=== PATIENT | male | born 1950 | race Caucasian/White ===

== ENCOUNTER 2017-12-20 19:16 | Inpatient (IN) ==
--- NOTE | 2017-12-20 19:22 | Emergency Department Note ---
Disposition Clinical Impression: Sepsis, Pneumonia, Febrile, Tachycardia Disposition: Admitted As Inpatient Condition: Fair General Adult HPI - General Stated complaint: fever and weakness Time Seen by Provider: 12/20/17 19:19 - Related Data Home Medications Medication Instructions Recorded Confirmed Aspirin Enteric Coated [Aspirin EC] 81 mg PO DAILY 12/20/17 12/20/17 Atenolol [Tenormin] 25 mg PO DAILY 12/20/17 12/20/17 Linagliptin [Tradjenta] 5 mg PO DAILY 12/20/17 12/20/17 Lisinopril [Zestril] 10 mg PO DAILY 12/20/17 12/20/17 Metformin HCl [Glucophage] 1,000 mg PO BIDWM 12/20/17 12/20/17 Pioglitazone HCl [Actos] 30 mg PO DAILY 12/20/17 12/20/17 Pravastatin Sodium [Pravachol] 40 mg PO BID 12/20/17 12/20/17 glipiZIDE [Glucotrol] 5 mg PO 0800 12/20/17 12/20/17 hydroCHLOROthiazide 25 mg PO DAILY 12/20/17 12/20/17 [Hydrochlorothiazide] Allergies Allergy/AdvReac Type Severity Reaction Status Date / Time Penicillins Allergy Hives Verified 08/30/17 14:13 Past Medical History - Past Medical History Medical history: Reports: diabetes, GERD, hyperlipidemia, hypertension Psychiatric history: Reports: anxiety - Social History Smoking Status: Never smoker Smokeless Tobacco Status: No Alcohol use: Reports: none Drug use: Reports: none Course Vital Signs Temperature 102.9 F H 12/20/17 19:23 Pulse Rate 133 12/20/17 19:23 Respiratory Rate 16 12/20/17 19:23 Blood Pressure 130/84 12/20/17 19:23 O2 Sat by Pulse Oximetry 92 12/20/17 19:23 Temperature 97.7 F 12/20/17 22:24 Pulse Rate 97 12/20/17 22:24 Respiratory Rate 22 12/20/17 22:24 Blood Pressure 131/84 12/20/17 22:24 O2 Sat by Pulse Oximetry 94 12/20/17 22:24 Oxygen Delivery Oxygen Delivery Nasal Cannula Medical Decision Making - Lab Data Result diagrams: 12/20/17 19:45 12/20/17 19:45 Lab Results 12/20/17 12/20/17 12/20/17 Range/Units 19:45 19:45 19:45 WBC 12.7 H (4.3-11.1) K/mcL RBC 5.39 (4.19-5.50) M/mcL Hgb 14.8 (12.9-16.9) g/dL Hct 43.1 (37.5-50.1) % MCV 80.0 L (83.0-100.0) fL MCH 27.5 L (28.0-33.3) pg MCHC 34.3 (31.6-35.5) g/dL RDW 14.8 H (11.5-14.5) % Plt Count 194 (140-400) K/mcL MPV 12.0 (9.4-12.4) fL Immature Gran % 1.1 (0-4) % Seg Neutrophils % 84.8 % Lymphocytes % 4.2 % Monocytes % 9.7 % Eosinophils % 0.0 % Basophils % 0.2 % Neutrophils # 10.8 H (1.6-8.9) K/mcL Lymphocytes # 0.5 L (0.6-4.6) K/mcL Monocytes # 1.2 (0.0-1.3) K/mcL Eosinophils # 0.0 (0.0-0.6) K/mcL Basophils # 0.0 (0.0-0.2) K/mcL PT 15.9 H (9.4-12.1) Seconds INR 1.5 Sodium 132 L (136-145) mEq/L Potassium 3.9 (3.5-5.1) mEq/L Chloride 98 (98-107) mEq/L Carbon Dioxide 22 L (23-29) mEq/L BUN 29 H (8-23) mg/dL Creatinine 1.27 (0.70-1.30) mg/dL Est GFR ( Amer) > 60 (> 60) Est GFR (Non-Af Amer) 56 L (> 60) BUN/Creatinine Ratio 23 (6-26) Glucose 342 H (70-105) mg/dL Calculated Osmolality 293 (280-300) Lactic Acid (0.5-2.2) mmol/L Calcium 8.7 (8.6-10.3) mg/dL Magnesium 2.2 (1.6-2.6) mg/dL Total Bilirubin 0.8 (0.3-1.0) mg/dL Direct Bilirubin 0.3 H (0.0-0.2) mg/dL Indirect Bilirubin 0.5 (0.0-1.2) mg/dL AST 88 H (13-39) Units/L ALT 69 H (7-52) Units/L Alkaline Phosphatase 66 (34-104) Units/L Troponin I 0.09 H* (< 0.04) ng/mL Serum Total Protein 6.9 (6.4-8.9) g/dL Albumin 3.4 L (3.5-5.7) g/dL Globulin 3.5 (2.4-3.5) g/dL Albumin/Globulin Ratio 1.0 L (1.1-2.2) Urine Color (Yellow) Urine Clarity (Clear) Urine pH (5.0-8.0) pH Units Ur Specific [place] (1.010-1.025) Urine Protein (Neg-Trace) mg/dL Urine Glucose (UA) (Normal) mg/dL Urine Ketones (Negative) mg/dL Urine Blood (Negative) Urine Nitrite (Negative) Urine Bilirubin (Negative) Urine Urobilinogen (Normal) mg/dL Ur Leukocyte Esterase (Negative) Urine Microscopic RBC (0-3) per hpf Urine Microscopic WBC (0-3) per hpf Ur Squamous Epith Cells (None-Few) per lpf Amorphous Sediment (Few) Urine Bacteria (None-Few) per hpf Hyaline Casts (None-Few) per lpf Ur Culture Indicated? (NO) 12/20/17 12/20/17 Range/Units 19:45 19:47 WBC (4.3-11.1) K/mcL RBC (4.19-5.50) M/mcL Hgb (12.9-16.9) g/dL Hct (37.5-50.1) % MCV (83.0-100.0) fL MCH (28.0-33.3) pg MCHC (31.6-35.5) g/dL RDW (11.5-14.5) % Plt Count (140-400) K/mcL MPV (9.4-12.4) fL Immature Gran % (0-4) % Seg Neutrophils % % Lymphocytes % % Monocytes % % Eosinophils % % Basophils % % Neutrophils # (1.6-8.9) K/mcL Lymphocytes # (0.6-4.6) K/mcL Monocytes # (0.0-1.3) K/mcL Eosinophils # (0.0-0.6) K/mcL Basophils # (0.0-0.2) K/mcL PT (9.4-12.1) Seconds INR Sodium (136-145) mEq/L Potassium (3.5-5.1) mEq/L Chloride (98-107) mEq/L Carbon Dioxide (23-29) mEq/L BUN (8-23) mg/dL Creatinine (0.70-1.30) mg/dL Est GFR ( Amer) (> 60) Est GFR (Non-Af Amer) (> 60) BUN/Creatinine Ratio (6-26) Glucose (70-105) mg/dL Calculated Osmolality (280-300) Lactic Acid 1.8 (0.5-2.2) mmol/L Calcium (8.6-10.3) mg/dL Magnesium (1.6-2.6) mg/dL Total Bilirubin (0.3-1.0) mg/dL Direct Bilirubin (0.0-0.2) mg/dL Indirect Bilirubin (0.0-1.2) mg/dL AST (13-39) Units/L ALT (7-52) Units/L Alkaline Phosphatase (34-104) Units/L Troponin I (< 0.04) ng/mL Serum Total Protein (6.4-8.9) g/dL Albumin (3.5-5.7) g/dL Globulin (2.4-3.5) g/dL Albumin/Globulin Ratio (1.1-2.2) Urine Color Dark Yellow (Yellow) Urine Clarity Turbid A (Clear) Urine pH 5.0 (5.0-8.0) pH Units Ur Specific [place] 1.030 H (1.010-1.025) Urine Protein 100 H (Neg-Trace) mg/dL Urine Glucose (UA) 250 H (Normal) mg/dL Urine Ketones Trace H (Negative) mg/dL Urine Blood Large H (Negative) Urine Nitrite Negative (Negative) Urine Bilirubin Small H (Negative) Urine Urobilinogen Normal (Normal) mg/dL Ur Leukocyte Esterase Negative (Negative) Urine Microscopic RBC 0-3 (0-3) per hpf Urine Microscopic WBC 5-15 H (0-3) per hpf Ur Squamous Epith Cells Many H (None-Few) per lpf Amorphous Sediment Many H (Few) Urine Bacteria None Seen (None-Few) per hpf Hyaline Casts Moderate H (None-Few) per lpf Ur Culture Indicated? NO (NO) Critical Care Time Critical Care Time: Yes Total Critical Care Time: 30 Attestation: The high probability of a clinically significant, sudden or life threatening deterioration of the [] system(s) required my full and direct attention, intervention and personal management. The aggregate critical care time was [] minutes. This time is in addition to time spent performing reported procedures but includes the following: [] Data Review and interpretation [] Patient assessment and monitoring of vital signs [] Documentation [] Medication orders and management Attestation Statement - Attestation Attestation: I examined this patient and my medical decision-making was reviewed with the Resident Physician. I agree with the documented findings, disposition and treatment plan as described except to the extent set forth below. [id number] time provided Patient arrives by EMS with generalized weakness and fever. He is febrile and tachycardic. Concern for SIRS/sepsis. Workup initiated in conjunction with the resident physician Dr. Botello
--- NOTE | 2017-12-20 19:34 | Emergency Department Note ---
Disposition Clinical Impression: Tachycardia Sepsis Qualifiers: Sepsis type: sepsis due to unspecified organism Qualified Code(s): A41.9 - Sepsis, unspecified organism Pneumonia Qualifiers: Pneumonia type: due to unspecified organism Laterality: right Lung location: unspecified part of lung Qualified Code(s): J18.9 - Pneumonia, unspecified organism Febrile Qualifiers: Fever type: unspecified Qualified Code(s): R50.9 - Fever, unspecified Disposition: Admitted As Inpatient Condition: Fair Referrals: Prabhu Doan MD [Primary Care Provider] - Forms: ED Satisfaction Letter Time of Disposition: 21:28 General Adult HPI - General Chief complaint: ED Fever Stated complaint: fever and weakness Time Seen by Provider: 12/20/17 19:19 Source: patient, EMS Limitations: no limitations Nursing Notes Reviewed: Yes Vital Signs Reviewed: Yes - History of Present Illness HPI Narrative: Patient is a 67-year-old male that presents the emergency department via EMS for concerns of possible sepsis. EMS states that his neighbors were concerned about his health due to him not being able to ambulate as well as normal and being somewhat confused. They also state that he has had some episodes of incontinence which is abnormal for him. Patient states that he has been feeling okay and does not have any pain at this time. He does state that he has had an intermittent cough. He is unable to provide any further history. Pain Scale: 0 - Related Data Home Medications Medication Instructions Recorded Confirmed Aspirin Enteric Coated [Aspirin EC] 81 mg PO DAILY 12/20/17 12/20/17 Atenolol [Tenormin] 25 mg PO DAILY 12/20/17 12/20/17 Linagliptin [Tradjenta] 5 mg PO DAILY 12/20/17 12/20/17 Lisinopril [Zestril] 10 mg PO DAILY 12/20/17 12/20/17 Metformin HCl [Glucophage] 1,000 mg PO BIDWM 12/20/17 12/20/17 Pioglitazone HCl [Actos] 30 mg PO DAILY 12/20/17 12/20/17 Pravastatin Sodium [Pravachol] 40 mg PO BID 12/20/17 12/20/17 glipiZIDE [Glucotrol] 5 mg PO 0800 12/20/17 12/20/17 hydroCHLOROthiazide 25 mg PO DAILY 12/20/17 12/20/17 [Hydrochlorothiazide] Allergies Allergy/AdvReac Type Severity Reaction Status Date / Time Penicillins Allergy Hives Verified 08/30/17 14:13 All systems ED: reviewed and negative except as stated. Constitutional: Reports: fever Cardiovascular: Denies: chest pain Respiratory: Denies: dyspnea Gastrointestinal: Denies: abdominal pain, nausea, vomiting Genitourinary: Reports: other (Urinary incontinence) Past Medical History - Past Medical History Medical history: Reports: diabetes, GERD, hyperlipidemia, hypertension Psychiatric history: Reports: anxiety - Social History Smoking Status: Never smoker Smokeless Tobacco Status: No Alcohol use: Reports: none Drug use: Reports: none Physical Exam - General Limitations: no limitations General appearance: alert, in no apparent distress - Head Head exam: atraumatic, normocephalic - Eye Eye exam: Present: normal appearance, EOMI - Neck Neck exam: Present: normal inspection, full ROM, trachea midline - Respiratory Respiratory exam: Present: wheezes (Bilateral wheezes). Absent: respiratory distress - Cardiovascular Cardiovascular exam: Present: normal rhythm, tachycardia, normal heart sounds, + S1, +S2 - Abdominal Exam Abdominal exam: Present: soft, Non-Tender, normal bowel sounds - Neurological Exam Neurological exam: Present: alert, oriented X3, CN II-XII intact - Expanded Neurological Exam Patient oriented to: Present: person, place. Absent: time Speech: Present: fluid speech Cranial nerves: EOM function (II, III, IV, ): Normal, facial sensation (V): Normal, facial palsy (VII): Normal, gag reflex (IX): Normal, spinal accessory function (XI): Normal, tongue deviation (XII): Normal Cerebellar function: finger to nose: Normal Motor strength - LUE: 5/5 Motor strength - RUE: 5/5 Motor strength - LLE: 4/5 (Patient states that he has chronic weakness of bilateral lower extremities) Motor strength - RLE: 4/5 (Patient states he has chronic weakness of bilateral lower extremities) Upper motor neuron exam: pronator drift: Absent bilaterally Sensory exam upper extremity: light touch: Normal Sensory exam lower extremity: light touch: Normal Coma Scale Eye Opening: Spontaneous Coma Scale Motor Response: Obeys Commands Coma Scale Verbal Response: Oriented Coma Scale Total: 15 - Psychiatric Psychiatric exam: Present: normal affect, normal mood - Skin Skin exam: Present: warm, dry, intact Course Vital Signs Temperature 102.9 F H 12/20/17 19:23 Pulse Rate 133 12/20/17 19:23 Respiratory Rate 16 12/20/17 19:23 Blood Pressure 130/84 12/20/17 19:23 O2 Sat by Pulse Oximetry 92 12/20/17 19:23 Temperature 102.9 F H 12/20/17 19:23 Pulse Rate 103 12/20/17 20:38 Respiratory Rate 20 12/20/17 20:38 Blood Pressure 155/92 12/20/17 20:38 O2 Sat by Pulse Oximetry 92 12/20/17 20:38 Oxygen Delivery Oxygen Delivery Nasal Cannula Medical Decision Making - MDM Narrative Medical decision making narrative: Due to the patient being febrile and tachycardic there is concern that this patient is septic. We will use septic workup including CBC, BMP, troponin chest x-ray EKG blood cultures and lactic acid. The patient will also obtain a urinalysis. Patient meets sepsis criteria. Has an elevated white count, tachycardic, febrile and has a possible pneumonia shown on chest xray. We will start the patient on IV Levaquin for antibiotic therapy. Patient has also been given a fluid bolus. The patient is also been given antipyretics here in the emergency department. Patient will need to be admitted to the hospital for further evaluation and management. I called and spoke with the hospitalist negative except the patient to their service. He requested that the patient be placed on maintenance fluid of 150 mL per hour and a telemetry bed be requested. The patient will be admitted to the hospital at this time for further evaluation and management. - Lab Data Lab results reviewed: Yes I reviewed the patient's lab results. Result diagrams: 12/20/17 19:45 12/20/17 19:45 Lab Results 12/20/17 12/20/17 12/20/17 Range/Units 19:45 19:45 19:45 WBC 12.7 H (4.3-11.1) K/mcL RBC 5.39 (4.19-5.50) M/mcL Hgb 14.8 (12.9-16.9) g/dL Hct 43.1 (37.5-50.1) % MCV 80.0 L (83.0-100.0) fL MCH 27.5 L (28.0-33.3) pg MCHC 34.3 (31.6-35.5) g/dL RDW 14.8 H (11.5-14.5) % Plt Count 194 (140-400) K/mcL MPV 12.0 (9.4-12.4) fL Immature Gran % 1.1 (0-4) % Seg Neutrophils % 84.8 % Lymphocytes % 4.2 % Monocytes % 9.7 % Eosinophils % 0.0 % Basophils % 0.2 % Neutrophils # 10.8 H (1.6-8.9) K/mcL Lymphocytes # 0.5 L (0.6-4.6) K/mcL Monocytes # 1.2 (0.0-1.3) K/mcL Eosinophils # 0.0 (0.0-0.6) K/mcL Basophils # 0.0 (0.0-0.2) K/mcL PT 15.9 H (9.4-12.1) Seconds INR 1.5 Sodium 132 L (136-145) mEq/L Potassium 3.9 (3.5-5.1) mEq/L Chloride 98 (98-107) mEq/L Carbon Dioxide 22 L (23-29) mEq/L BUN 29 H (8-23) mg/dL Creatinine 1.27 (0.70-1.30) mg/dL Est GFR ( Amer) > 60 (> 60) Est GFR (Non-Af Amer) 56 L (> 60) BUN/Creatinine Ratio 23 (6-26) Glucose 342 H (70-105) mg/dL Calculated Osmolality 293 (280-300) Lactic Acid (0.5-2.2) mmol/L Calcium 8.7 (8.6-10.3) mg/dL Magnesium 2.2 (1.6-2.6) mg/dL Total Bilirubin 0.8 (0.3-1.0) mg/dL Direct Bilirubin 0.3 H (0.0-0.2) mg/dL Indirect Bilirubin 0.5 (0.0-1.2) mg/dL AST 88 H (13-39) Units/L ALT 69 H (7-52) Units/L Alkaline Phosphatase 66 (34-104) Units/L Troponin I 0.09 H* (< 0.04) ng/mL Serum Total Protein 6.9 (6.4-8.9) g/dL Albumin 3.4 L (3.5-5.7) g/dL Globulin 3.5 (2.4-3.5) g/dL Albumin/Globulin Ratio 1.0 L (1.1-2.2) Urine Color (Yellow) Urine Clarity (Clear) Urine pH (5.0-8.0) pH Units Ur Specific [place] (1.010-1.025) Urine Protein (Neg-Trace) mg/dL Urine Glucose (UA) (Normal) mg/dL Urine Ketones (Negative) mg/dL Urine Blood (Negative) Urine Nitrite (Negative) Urine Bilirubin (Negative) Urine Urobilinogen (Normal) mg/dL Ur Leukocyte Esterase (Negative) Urine Microscopic RBC (0-3) per hpf Urine Microscopic WBC (0-3) per hpf Ur Squamous Epith Cells (None-Few) per lpf Amorphous Sediment (Few) Urine Bacteria (None-Few) per hpf Hyaline Casts (None-Few) per lpf Ur Culture Indicated? (NO) 12/20/17 12/20/17 Range/Units 19:45 19:47 WBC (4.3-11.1) K/mcL RBC (4.19-5.50) M/mcL Hgb (12.9-16.9) g/dL Hct (37.5-50.1) % MCV (83.0-100.0) fL MCH (28.0-33.3) pg MCHC (31.6-35.5) g/dL RDW (11.5-14.5) % Plt Count (140-400) K/mcL MPV (9.4-12.4) fL Immature Gran % (0-4) % Seg Neutrophils % % Lymphocytes % % Monocytes % % Eosinophils % % Basophils % % Neutrophils # (1.6-8.9) K/mcL Lymphocytes # (0.6-4.6) K/mcL Monocytes # (0.0-1.3) K/mcL Eosinophils # (0.0-0.6) K/mcL Basophils # (0.0-0.2) K/mcL PT (9.4-12.1) Seconds INR Sodium (136-145) mEq/L Potassium (3.5-5.1) mEq/L Chloride (98-107) mEq/L Carbon Dioxide (23-29) mEq/L BUN (8-23) mg/dL Creatinine (0.70-1.30) mg/dL Est GFR ( Amer) (> 60) Est GFR (Non-Af Amer) (> 60) BUN/Creatinine Ratio (6-26) Glucose (70-105) mg/dL Calculated Osmolality (280-300) Lactic Acid 1.8 (0.5-2.2) mmol/L Calcium (8.6-10.3) mg/dL Magnesium (1.6-2.6) mg/dL Total Bilirubin (0.3-1.0) mg/dL Direct Bilirubin (0.0-0.2) mg/dL Indirect Bilirubin (0.0-1.2) mg/dL AST (13-39) Units/L ALT (7-52) Units/L Alkaline Phosphatase (34-104) Units/L Troponin I (< 0.04) ng/mL Serum Total Protein (6.4-8.9) g/dL Albumin (3.5-5.7) g/dL Globulin (2.4-3.5) g/dL Albumin/Globulin Ratio (1.1-2.2) Urine Color Dark Yellow (Yellow) Urine Clarity Turbid A (Clear) Urine pH 5.0 (5.0-8.0) pH Units Ur Specific [place] 1.030 H (1.010-1.025) Urine Protein 100 H (Neg-Trace) mg/dL Urine Glucose (UA) 250 H (Normal) mg/dL Urine Ketones Trace H (Negative) mg/dL Urine Blood Large H (Negative) Urine Nitrite Negative (Negative) Urine Bilirubin Small H (Negative) Urine Urobilinogen Normal (Normal) mg/dL Ur Leukocyte Esterase Negative (Negative) Urine Microscopic RBC 0-3 (0-3) per hpf Urine Microscopic WBC 5-15 H (0-3) per hpf Ur Squamous Epith Cells Many H (None-Few) per lpf Amorphous Sediment Many H (Few) Urine Bacteria None Seen (None-Few) per hpf Hyaline Casts Moderate H (None-Few) per lpf Ur Culture Indicated? NO (NO) - Radiology Data Radiology results reviewed: Yes I reviewed the patient's radiology results. Chest X-Ray 12/20/17 19:20 IMPRESSION: Development of a perihilar infiltrate in the right lung, concerning for pneumonia. This should be followed to resolution. D/ / Marek Gale MD / Marek Gale MD Interpreting Provider: Marek Gale MD - EKG Data EKG #1 EKG attestation: Yes I reviewed and interpreted this EKG. EKG results narrative: EKG shows sinus tachycardia at a rate of 129 bpm, OK interval of 141, QRS duration of 86, QTc of 392 with a normal axis. This is compared to previous EKG on 08/30/17 which showed a sinus rhythm at a rate of 93 bpm. There is no STEMI noted on EKG.
[2017-12-20] MEDS ORDERED: 0.9 % Sodium Chloride 1,000 ML ONE (19:48)
[2017-12-20] MEDS: 0.9 % Sodium Chloride 1,000 ML IVC SCH ×2 (19:53→20:42)
[2017-12-20 20:06] LABS: Bilirubin,Urine Small (Negative); Blood,Urine Large (Negative); Clarity,Urine Turbid (Clear); Color,Urine Dark Yellow (Yellow); Glucose,Urine (UA) 250 mg/dL (Normal); Ketones,Urine Trace mg/dL (Negative); Leukocyte Esterase,Urine Negative (Negative); Nitrite,Urine Negative (Negative); Protein,Urine 100 mg/dL (Neg-Trace); Urobilinogen,Urine Normal (Normal)
[2017-12-20 20:06] LABS: Basophils % 0.2 %; Hematocrit 43.1 % (37.5-50.1); Hemoglobin 14.8 g/dL (12.9-16.9); Immature Granulocytes % 1.1 % (0-4); Lymphocytes # 0.5 K/mcL (0.6-4.6); Lymphocytes % 4.2 %; Mean Corpuscular HGB Conc 34.3 g/dL (31.6-35.5); Mean Corpuscular Hemoglobin 27.5 pg (28.0-33.3); Monocytes # 1.2 K/mcL (0.0-1.3); Monocytes % 9.7 %; Neutrophils # 10.8 K/mcL (1.6-8.9); Platelet Count 194 K/mcL (140-400); Red Blood Count 5.39 M/mcL (4.19-5.50); Red Cell Distribution Width 14.8 % (11.5-14.5); Segmented Neutrophils % 84.8 %
[2017-12-20 20:08] LABS: Bacteria,Urine None Seen per hpf (None-Few); RBC,Urine 0-3 per hpf (0-3); Squamous Epithelial Cell,Urine Many per lpf (None-Few)
[2017-12-20 20:11] LABS: INR 1.5; Prothrombin Time 15.9 Seconds (9.4-12.1)
[2017-12-20 20:20] LABS: Hyaline Casts,Urine Moderate per lpf (None-Few)
[2017-12-20 20:22] LABS: Amorphous Sediment,Urine Many (Few)
[2017-12-20 20:33] LABS: Alanine Aminotransferase 69 Units/L (7-52); Albumin 3.4 g/dL (3.5-5.7); Alkaline Phosphatase 66 Units/L (34-104); Aspartate Amino Transferase 88 Units/L (13-39); BUN/Creatinine Ratio 23 (6-26); Bilirubin,Direct 0.3 mg/dL (0.0-0.2); Bilirubin,Indirect 0.5 mg/dL (0.0-1.2); Bilirubin,Total 0.8 mg/dL (0.3-1.0); Blood Urea Nitrogen 29 mg/dL (8-23); Calcium 8.7 mg/dL (8.6-10.3); Carbon Dioxide 22 mEq/L (23-29); Chloride 98 mEq/L (98-107); Globulin 3.5 g/dL (2.4-3.5); Glucose 342 mg/dL (70-105); Magnesium 2.2 mg/dL (1.6-2.6); Osmolality,Calculated 293 (280-300); Potassium 3.9 mEq/L (3.5-5.1); Sodium 132 mEq/L (136-145); Total Protein 6.9 g/dL (6.4-8.9); eGFR For African Americans > 60 (> 60); eGFR For Non-African Americans 56 (> 60)
[2017-12-20 20:35] LABS: Troponin I 0.09 ng/mL (< 0.04)
[2017-12-20] MEDS ORDERED: Levofloxacin 750 MG/150 ML 750 MG/150 ML BAG IVPB ONE (20:52)
[2017-12-20] MEDS ORDERED: 0.9 % Sodium Chloride 1,000 ML IVC SCH (21:30)
[2017-12-21] MEDS ORDERED: *HR* Dextrose 50 % in Water (Syg) 50 ML SYRINGE IVP PRN (02:05)
[2017-12-21] MEDS ORDERED: D5% in Water 1,000 ML IVC PRN (02:05)
[2017-12-21] MEDS ORDERED: Acetaminophen 325 MG TABLET PO PRN (02:05)
[2017-12-21] MEDS ORDERED: Dextrose Gel 15 GM/37.5 ML TUBE PO PRN ×2 (02:05)
[2017-12-21] MEDS ORDERED: Naloxone 0.4 MG/ML INJ IVP PRN (02:05)
--- NOTE | 2017-12-21 02:22 | Internal Med History&Physical ---
Date of Encounter: 12/21/17 Time of Encounter: 01:45 Internal Medicine - H&P: HPI Chief complaint: fever Admitted From: Emergency Dept Plans for Post Hospital Care: Home History of present illness: Mr. Soto is a 67 year old male who presents to the ER tonight for concerns of fever, confusion, and incontinence. Patient's friend/neighbor contacted EMS who came the patient's home and brought him to the ER for the above complaints. In the ER, he was noted to be confused, tachycardic, dehydrated, and he had clinical and radiographic evidence of pneumonia. He was fluid resuscitated and antibiotics were initiated. He was subsequently admitted to the hospitalist service. Upon my assessment of the patient, he is alert, oriented to self and place, but not situation. He still is somewhat confused and disoriented. He is unable to provide much history other than the fact he has had some back problems for quite some time. He denies any specific complaints. However, upon further questioning and prompting, he does admit to having had cough, shortness of breath, and not feeling well for a few days. He reportedly lives alone and there are no family members present to provide any further history. Most of history is obtained from old records and ER reports. Past Med Surg Social Fam HX - Past Medical History Attestation: Yes The following information was validated with the patient. Source: patient (limited), old records reviewed, nursing notes reviewed Medical history: diabetes, GERD, hyperlipidemia, hypertension Psychiatric history: anxiety - Past Surgical History Surgical History: appendectomy - Social History Smoking Status: Never smoker Smokeless Tobacco Status: No Alcohol use: none Drug use: none Current living situation: Home - Independent Activity Level: Independent ambulation Recent Out of Country Travel Within the Last 8 Weeks: No - Family History Mother History Unknown: Yes Father History Unknown: Yes Internal Medicine - H&P: Meds Aspirin Enteric Coated [Aspirin EC] 81 mg PO DAILY 12/20/17 [History] Atenolol [Tenormin] 25 mg PO DAILY 12/20/17 [History] Linagliptin [Tradjenta] 5 mg PO DAILY 12/20/17 [History] Lisinopril [Zestril] 10 mg PO DAILY 12/20/17 [History] Metformin HCl [Glucophage] 1,000 mg PO BIDWM 12/20/17 [History] Pioglitazone HCl [Actos] 30 mg PO DAILY 12/20/17 [History] Pravastatin Sodium [Pravachol] 40 mg PO BID 12/20/17 [History] glipiZIDE [Glucotrol] 5 mg PO 0800 12/20/17 [History] hydroCHLOROthiazide [Hydrochlorothiazide] 25 mg PO DAILY 12/20/17 [History] 3 Allergy/AdvReac Type Severity Reaction Status Date / Time Penicillins Allergy Hives Verified 08/30/17 14:13 - Constitutional Constitutional: fever(s), night sweats, no chills - EENT Eyes: no blurry vision, no change in vision Ears: no ear pain, no tinnitus Nose, mouth and throat: no nasal congestion, no nasal discharge, no sinus pressure - Cardiovascular Cardiovascular ROS IM: dyspnea, no chest pain, no palpitations - Respiratory Respiratory: cough, dyspnea, chest congestion, no hemoptysis, no excessive phlegm production, no change in phlegm color - Gastrointestinal Gastrointestinal: no abdominal pain, no diarrhea, no hematemesis, no hematochezia, no melena, no nausea, no vomiting - Genitourinary Genitourinary ROS male: no flank pain, no hematuria - Musculoskeletal Musculoskeletal ROS IM: no atrophy, no back pain - Integumentary Integumentary IM: no rash - Neurological Neurological ROS: confusion, no dizziness, no focal weakness, no frequent falls - Psychiatric Psychiatric: no anxiety, no depression - Endocrine Endocrine IM: no polydipsia, no polyuria - Allergic/Immunologic Allergic/Immunologic: no GI upset with certain foods - Constitutional Vitals: Temp Pulse Resp BP Pulse Ox 97.7 F 97 22 131/84 94 12/20/17 22:24 12/20/17 22:24 12/20/17 22:24 12/20/17 22:24 12/20/17 22:24 General appearance: Present: cooperative, disheveled, A&O X 2, mild distress, pleasant - Head Head exam: Present: atraumatic, normal inspection - Eye Eye exam: Present: EOMI, normal appearance, PERRL. Absent: scleral icterus Pupils: Present: normal accommodation - ENT ENT exam: Present: mucous membranes dry, normal exam, normal oropharynx - Neck Neck exam general surgery: Present: full ROM, supple. Absent: lymphadenopathy, tenderness, nuchal rigidity, thyromegaly - Respiratory Respiratory exam: Present: rales (right base ~ 1/[address] way up), respiratory distress (mild), rhonchi, tachypnea. Absent: chest wall tenderness, wheezes - Cardiovascular Cardiovascular exam: Present: distant heart sounds, RRR, +S1, +S2. Absent: diastolic murmur, systolic murmur - GI/Abdominal GI/Abdominal exam: Present: soft. Absent: guarding, hepatomegaly, mass, rebound , splenomegaly, tenderness - Extremities Exam Extremities exam: Present: full ROM, normal capillary refill, warm. Absent: calf tenderness, joint swelling, pedal edema, tenderness Additional comments: superficial wound on posterior right lower leg - Back Exam Back exam: Present: normal inspection. Absent: CVA tenderness (L), CVA tenderness (R) - Neurological Exam Neurological exam: Present: alert, CN II-XII intact, oriented X3, no focal deficits - Psychiatric Psychiatric exam: Present: normal affect, normal mood - Skin Skin exam: Present: dry, warm. Absent: rash Internal Med - H&P Results - Labs CBC & Chem 7: 12/20/17 19:45 12/20/17 19:45 - EKG Data -: EKG Interpreted by Myself - EKG Data Prior EKG available for review: no EKG comments: 12/21/17 02:28 Sinus tachycardia with no acute changes; old inferior ID - Diagnostic Studies Chest x-ray Status: image reviewed by me (right lung infiltrate) - Assessment and plan (1) Sepsis Current Visit: Yes Status: Acute Assessment and plan: 1. Due to pneumonia. 2. Blood cultures drawn. 3. Trend lactate levels -- normal thus far. 4. Fluid resuscitation in ER; continue MIV. 5. IV Levaquin. 6. Oxygen and aerosols for support. 7. Monitor hemodynamics closely and follow cultures. Qualifiers: Sepsis type: sepsis due to unspecified organism Qualified Code(s): A41.9 - Sepsis, unspecified organism (2) Dehydration Current Visit: Yes Status: Acute Assessment and plan: 1. IVF hydration and oral fluid as tolerated. 2. MIV as above. 3. S/P fluid resuscitation. (3) Acute encephalopathy Current Visit: Yes Status: Acute Assessment and plan: 1. Suspect due to sepsis/pneumonia. 2. Monitor closely; await family/friends to visit to obtain historical baseline. (4) Type 2 diabetes mellitus Current Visit: Yes Status: Chronic Assessment and plan: 1. Hold oral home meds. 2. Will place on SSI and monitor/adjust as necessary. 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 Heparin SQ.
[2017-12-21] MEDS: 0.9 % Sodium Chloride w KCl 20 MEQ/1,000 ML MLS IVC SCH ×2 (02:38→12:34)
[2017-12-21 03:01] LABS: Basophils % 0.3 %; Eosinophils % 0.3 %; Hematocrit 39.2 % (37.5-50.1); Immature Granulocytes % 0.8 % (0-4); Lymphocytes # 0.5 K/mcL (0.6-4.6); Mean Corpuscular HGB Conc 33.4 g/dL (31.6-35.5); Mean Corpuscular Hemoglobin 27.2 pg (28.0-33.3); Mean Corpuscular Volume 81.3 fL (83.0-100.0); Mean Platelet Volume 11.6 fL (9.4-12.4); Monocytes # 0.9 K/mcL (0.0-1.3); Monocytes % 8.9 %; Neutrophils # 8.3 K/mcL (1.6-8.9); Platelet Count 147 K/mcL (140-400); Red Blood Count 4.82 M/mcL (4.19-5.50); Red Cell Distribution Width 14.7 % (11.5-14.5); Segmented Neutrophils % 84.7 %
[2017-12-21 03:02] LABS: Hemoglobin 13.1 g/dL (12.9-16.9)
[2017-12-21 03:08] LABS: INR 1.5; Prothrombin Time 16.3 Seconds (9.4-12.1)
[2017-12-21 03:11] LABS: Activated Partial Thrombo Time 25.9 Seconds (26.0-36.0)
[2017-12-21 03:24] LABS: Alanine Aminotransferase 62 Units/L (7-52); Albumin 2.7 g/dL (3.5-5.7); Albumin/Globulin Ratio 0.9 (1.1-2.2); Alkaline Phosphatase 51 Units/L (34-104); Aspartate Amino Transferase 77 Units/L (13-39); BUN/Creatinine Ratio 24 (6-26); Bilirubin,Total 0.6 mg/dL (0.3-1.0); Blood Urea Nitrogen 23 mg/dL (8-23); Calcium 7.7 mg/dL (8.6-10.3); Carbon Dioxide 25 mEq/L (23-29); Chloride 102 mEq/L (98-107); Chol/HDL Ratio 6.8 (0-4.9); Cholesterol 109 mg/dL (< 200); Globulin 3.1 g/dL (2.4-3.5); Glucose 320 mg/dL (70-105); HDL Cholesterol 16 mg/dL (40-59); LDL Cholesterol,Calculated 70 mg/dL (0-99); Magnesium 2.1 mg/dL (1.6-2.6); Osmolality,Calculated 294 (280-300); Potassium 4.2 mEq/L (3.5-5.1); Sodium 134 mEq/L (136-145); Total Protein 5.8 g/dL (6.4-8.9); Triglycerides 116 mg/dL (< 150); eGFR For African Americans > 60 (> 60); eGFR For Non-African Americans > 60 (> 60)
[2017-12-21 04:17] LABS: Troponin I 0.06 ng/mL (< 0.04)
[2017-12-21] MEDS: *HR* Heparin 5,000 UNIT/ML VIAL SQ SCH ×2 (05:48→18:51)
[2017-12-21 08:40] LABS: Estimated Average Glucose 180 mg/dl; Hemoglobin A1C 7.9 %
[2017-12-21] MEDS: Aspirin Enteric Coated 81 MG Tablet PO SCH (10:26)
[2017-12-21] MEDS: Insulin LISPRO 300 UNITS/3 ML VIAL SQ SCH ×3 (10:41→16:57)
[2017-12-21 10:58] LABS: Adenovirus F 40/41 PCR Not detected (Not detect); Astrovirus PCR Not detected (Not detect); C.difficile Toxin A/B by PCR Not detected (Not detect); Campylobacter by PCR Not detected (Not detect); Cryptosporidium by PCR Not detected (Not detect); Cyclospora cayetanensis PCR Not detected (Not detect); E. coli O157 by PCR Not detected (Not detect); Entamoeba histolytica PCR Not detected (Not detect); Enteroaggregative E.coli(EAEC) Not detected (Not detect); Enteropathogenic E.coli(EPEC) Not detected (Not detect); Enterotoxigenic E.coli (ETEC) Not detected (Not detect); Giardia lamblia PCR Not detected (Not detect); Norovirus GI/GII PCR Not detected (Not detect); Plesiomonas shigelloides PCR Not detected (Not detect); Rotavirus A PCR Not detected (Not detect); Salmonella PCR Not detected (Not detect); Sapovirus PCR Not detected (Not detect); Shig/EnteroinvasiveE coli EIEC Not detected (Not detect); Shigalike tox-prod E coli STEC Not detected (Not detect); Vibrio PCR Not detected (Not detect); Vibrio cholerae PCR Not detected (Not detect); Yersinia enterocolitica PCR Not detected (Not detect)
[2017-12-21] MEDS: Levofloxacin 750 MG/150 ML 750 MG/150 ML BAG IVPB SCH (18:51)
--- NOTE | 2017-12-21 20:08 | Event Note ---
Date of Encounter: 12/21/17 Time of Encounter: 11:00 Patient seen and evaluated by a nocturnalist earlier this morning and also by myself 1. Sepsis secondary to community acquired pneumonia Continue IV Levaquin
[2017-12-22] MEDS: *HR* Heparin 5,000 UNIT/ML VIAL SQ SCH ×2 (05:01→17:16)
[2017-12-22] MEDS: Aspirin Enteric Coated 81 MG Tablet PO SCH (08:29)
[2017-12-22] MEDS: Insulin LISPRO 300 UNITS/3 ML VIAL SQ SCH ×3 (08:30→17:15)
[2017-12-22 10:28] LABS: Basophils % 0.4 %; Eosinophils # 0.2 K/mcL (0.0-0.6); Eosinophils % 2.6 %; Hematocrit 41.7 % (37.5-50.1); Hemoglobin 13.7 g/dL (12.9-16.9); Immature Granulocytes % 1.4 % (0-4); Lymphocytes # 0.4 K/mcL (0.6-4.6); Lymphocytes % 5.3 %; Mean Corpuscular HGB Conc 32.9 g/dL (31.6-35.5); Mean Corpuscular Hemoglobin 27.1 pg (28.0-33.3); Mean Corpuscular Volume 82.6 fL (83.0-100.0); Mean Platelet Volume 12.7 fL (9.4-12.4); Monocytes # 0.6 K/mcL (0.0-1.3); Monocytes % 7.6 %; Neutrophils # 6.9 K/mcL (1.6-8.9); Platelet Count 141 K/mcL (140-400); Red Blood Count 5.05 M/mcL (4.19-5.50); Red Cell Distribution Width 14.9 % (11.5-14.5); Segmented Neutrophils % 82.7 %
[2017-12-22 10:49] LABS: BUN/Creatinine Ratio 16 (6-26); Blood Urea Nitrogen 14 mg/dL (8-23); Calcium 7.8 mg/dL (8.6-10.3); Carbon Dioxide 24 mEq/L (23-29); Chloride 99 mEq/L (98-107); Glucose 248 mg/dL (70-105); Osmolality,Calculated 277 (280-300); Potassium 4.2 mEq/L (3.5-5.1); Sodium 129 mEq/L (136-145); eGFR For African Americans > 60 (> 60); eGFR For Non-African Americans > 60 (> 60)
[2017-12-22] MEDS: Levofloxacin 750 MG/150 ML 750 MG/150 ML BAG IVPB SCH (17:16)
--- NOTE | 2017-12-22 18:28 | Internal Med Progress Note ---
Date of Encounter: 12/22/17 Time of Encounter: 11:00 - Assessment and plan (1) Pneumonia Current Visit: Yes Status: Acute Assessment and plan: Chest x-ray showed developing perihilar infiltrate in right lung concerning for pneumonia Patient's leukocytosis has resolved and has been afebrile on IV Levaquin Patient however still requiring supplemental oxygenation Continue current management Qualifiers: Pneumonia type: due to unspecified organism Laterality: right Lung location: unspecified part of lung Qualified Code(s): J18.9 - Pneumonia, unspecified organism (2) Sepsis Current Visit: Yes Status: Resolved Assessment and plan: Resolved; was due to the above Qualifiers: Sepsis type: sepsis due to unspecified organism Qualified Code(s): A41.9 - Sepsis, unspecified organism (3) Acute encephalopathy Current Visit: Yes Status: Acute Assessment and plan: Resolved; secondary to the above Continue to monitor (4) Type 2 diabetes mellitus Current Visit: Yes Status: Chronic Qualifiers: Diabetes mellitus skilled nursing insulin use: 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 Patient still requiring supplemental oxygenation and did not require any oxygen at home. Physical therapy evaluated patient with recommendations for ECF placement - Constitutional Vitals: Temp Pulse Resp BP Pulse Ox 98.8 F 80 22 149/85 95 12/22/17 15:50 12/22/17 15:50 12/22/17 15:50 12/22/17 15:50 12/22/17 15:50 General appearance: Present: cooperative, disheveled, A&O X 2, mild distress, pleasant - Respiratory Respiratory exam: Present: CTAB. Absent: accessory muscle use, rales, rhonchi, wheezes - Cardiovascular Cardiovascular exam: Present: RRR, +S1, +S2. Absent: diastolic murmur, gallop, rubs, systolic murmur Internal Medicine: Result - Labs CBC & Chem 7: 12/22/17 10:02 12/22/17 10:02 Labs: Short CBC 12/22/17 Range/Units 10:02 WBC 8.3 (4.3-11.1) K/mcL Hgb 13.7 (12.9-16.9) g/dL Hct 41.7 (37.5-50.1) % Plt Count 141 (140-400) K/mcL Neutrophils # 6.9 (1.6-8.9) K/mcL BMP 12/22/17 10:02 Sodium 129 L Potassium 4.2 Chloride 99 Carbon Dioxide 24 BUN 14 Creatinine 0.86 Glucose 248 H Calcium 7.8 L - ABG Interpretation ABG results: PT/INR, D-dimer PT 16.3 Seconds (9.4-12.1) H 12/21/17 02:37 Consult Discharge Plan - Plan Referrals: Prabhu Doan MD [Primary Care Provider] -
[2017-12-23 04:37] LABS: Basophils % 0.4 %; Eosinophils # 0.4 K/mcL (0.0-0.6); Eosinophils % 4.5 %; Hematocrit 40.5 % (37.5-50.1); Hemoglobin 13.7 g/dL (12.9-16.9); Immature Granulocytes % 3.3 % (0-4); Lymphocytes # 0.6 K/mcL (0.6-4.6); Mean Corpuscular HGB Conc 33.8 g/dL (31.6-35.5); Mean Corpuscular Hemoglobin 27.3 pg (28.0-33.3); Mean Corpuscular Volume 80.7 fL (83.0-100.0); Mean Platelet Volume 12.7 fL (9.4-12.4); Monocytes # 0.7 K/mcL (0.0-1.3); Monocytes % 7.8 %; Neutrophils # 7.2 K/mcL (1.6-8.9); Nucleated Red Blood Cells 0.2 /100 WBC (0); Platelet Count 177 K/mcL (140-400); Red Blood Count 5.02 M/mcL (4.19-5.50); Red Cell Distribution Width 14.7 % (11.5-14.5)
[2017-12-23 05:05] LABS: BUN/Creatinine Ratio 18 (6-26); Blood Urea Nitrogen 13 mg/dL (8-23); Calcium 7.9 mg/dL (8.6-10.3); Carbon Dioxide 23 mEq/L (23-29); Chloride 97 mEq/L (98-107); Glucose 232 mg/dL (70-105); Osmolality,Calculated 278 (280-300); Potassium 3.8 mEq/L (3.5-5.1); Sodium 130 mEq/L (136-145); eGFR For African Americans > 60 (> 60); eGFR For Non-African Americans > 60 (> 60)
[2017-12-23] MEDS: *HR* Heparin 5,000 UNIT/ML VIAL SQ SCH ×2 (06:53→17:07)
[2017-12-23] MEDS: Insulin LISPRO 300 UNITS/3 ML VIAL SQ SCH ×3 (09:21→17:09)
[2017-12-23] MEDS: Aspirin Enteric Coated 81 MG Tablet PO SCH (09:21)
[2017-12-23 13:41] LABS: INR 1.3; Prothrombin Time 14.5 Seconds (9.4-12.1)
--- NOTE | 2017-12-23 15:49 | Internal Med Progress Note ---
Date of Encounter: 12/23/17 Time of Encounter: 11:00 - Assessment and plan (1) Pneumonia Current Visit: Yes Status: Acute Assessment and plan: Chest x-ray showed developing perihilar infiltrate in right lung concerning for pneumonia Patient's leukocytosis has resolved and has been afebrile on IV Levaquin Patient however still requiring supplemental oxygenation Continue current management Qualifiers: Pneumonia type: due to unspecified organism Laterality: right Lung location: unspecified part of lung Qualified Code(s): J18.9 - Pneumonia, unspecified organism (2) Sepsis Current Visit: Yes Status: Resolved Assessment and plan: Resolved; secondary due to the above Qualifiers: Sepsis type: sepsis due to unspecified organism Qualified Code(s): A41.9 - Sepsis, unspecified organism (3) Acute encephalopathy Current Visit: Yes Status: Acute Assessment and plan: Resolved; secondary to the above Continue to monitor (4) Type 2 diabetes mellitus Current Visit: Yes Status: Chronic Assessment and plan: Continue holding oral home meds and coverage with sliding-scale insulin Qualifiers: Diabetes mellitus fpc insulin use: without fpc use Diabetes mellitus complication status: without complication Qualified Code(s): E11.9 - Type 2 diabetes mellitus without complications (5) DVT prophylaxis Current Visit: Yes Status: Acute Assessment and plan: Subcutaneous heparin - Time Spent With Patient Total time spent is greater than 50% in coordination of care (as documented) at patient's floor/unit and/or counseling patient: - Subjective Interval history: Patient patient no longer short of breath but still requiring supplemental oxygenation and did not require any oxygen at home. Physical therapy evaluated patient with recommendations for ECF and awaiting placement - Constitutional Vitals: Temp Pulse Resp BP Pulse Ox 98.0 F 79 20 117/69 95 12/23/17 15:02 12/23/17 15:02 12/23/17 15:02 12/23/17 15:02 12/23/17 15:02 General appearance: Present: cooperative, disheveled, A&O X 2, mild distress, pleasant, no acute distress - Respiratory Respiratory exam: Present: CTAB. Absent: accessory muscle use, rales, rhonchi, wheezes - Cardiovascular Cardiovascular exam: Present: RRR, +S1, +S2. Absent: diastolic murmur, gallop, rubs, systolic murmur Internal Medicine: Result - Labs CBC & Chem 7: 04/15/18 04:11 12/23/17 04:11 Labs: Short CBC 12/23/17 Range/Units 04:11 WBC 9.2 (4.3-11.1) K/mcL Hgb 13.7 (12.9-16.9) g/dL Hct 40.5 (37.5-50.1) % Plt Count 177 (140-400) K/mcL Neutrophils # 7.2 (1.6-8.9) K/mcL BMP 12/23/17 04:11 Sodium 130 L Potassium 3.8 Chloride 97 L Carbon Dioxide 23 BUN 13 Creatinine 0.74 Glucose 232 H Calcium 7.9 L - ABG Interpretation ABG results: PT/INR, D-dimer PT 14.5 Seconds (9.4-12.1) H 12/23/17 13:08 Consult Discharge Plan - Plan Referrals: Prabhu Doan MD [Primary Care Provider] -
[2017-12-23] MEDS: Levofloxacin 750 MG/150 ML 750 MG/150 ML BAG IVPB SCH (17:07)
[2017-12-24] MEDS: Insulin LISPRO 300 UNITS/3 ML VIAL SQ SCH ×5 (00:38→21:17)
[2017-12-24] MEDS: *HR* Heparin 5,000 UNIT/ML VIAL SQ SCH ×2 (05:18→17:07)
[2017-12-24 06:08] LABS: Hematocrit 41.7 % (37.5-50.1); Mean Corpuscular HGB Conc 33.6 g/dL (31.6-35.5); Mean Corpuscular Hemoglobin 27.2 pg (28.0-33.3); Mean Platelet Volume 12.1 fL (9.4-12.4); Platelet Count 211 K/mcL (140-400); Red Blood Count 5.15 M/mcL (4.19-5.50); Red Cell Distribution Width 14.9 % (11.5-14.5)
[2017-12-24 06:23] LABS: BUN/Creatinine Ratio 23 (6-26); Blood Urea Nitrogen 18 mg/dL (8-23); Calcium 8.2 mg/dL (8.6-10.3); Carbon Dioxide 24 mEq/L (23-29); Chloride 99 mEq/L (98-107); Glucose 244 mg/dL (70-105); Osmolality,Calculated 282 (280-300); Potassium 3.9 mEq/L (3.5-5.1); Sodium 131 mEq/L (136-145); eGFR For African Americans > 60 (> 60); eGFR For Non-African Americans > 60 (> 60)
[2017-12-24 06:47] LABS: Lymphocytes # 0.8 K/mcL (0.6-4.6); Platelet Estimate Normal (Normal)
[2017-12-24] MEDS: Aspirin Enteric Coated 81 MG Tablet PO SCH (09:25)
[2017-12-24] MEDS: levoFLOXacin 750 MG TABLET PO SCH (17:07)
--- NOTE | 2017-12-24 17:30 | Discharge Summary ---
- NOTES TO OUTPATIENT PROVIDER Notes to Outpatient Provider: Patient to complete course of Levaquin for pneumonia Date of Encounter: 12/24/17 Time of Encounter: 11:00 - Discharge Diagnosis (1) Pneumonia Priority: Primary Status: Acute Qualifiers: Pneumonia type: due to unspecified organism Laterality: right Lung location: unspecified part of lung Qualified Code(s): J18.9 - Pneumonia, unspecified organism (2) Sepsis Priority: Primary Status: Resolved Qualifiers: Sepsis type: sepsis due to unspecified organism Qualified Code(s): A41.9 - Sepsis, unspecified organism (3) Acute encephalopathy Priority: Primary Status: Acute (4) Type 2 diabetes mellitus Priority: Secondary Status: Chronic Qualifiers: 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 Patient's friend/neighbor contacted EMS who came the patient's home and brought him to the ER for the above complaints. In the ER, he was noted to be confused, tachycardic, dehydrated, and he had clinical and radiographic evidence of pneumonia. He was fluid resuscitated and antibiotics were initiated. He was subsequently admitted to the hospitalist service. During patients hospital stay his symptoms improved after treatment with IV Levaquin for pneumonia. As a result, his sepsis resolved and his altered mental status resolved. Physical therapy was consulted with recommendations for placement at snf facility for strengthening and conditioning. Patient is medically stable to be discharge when accepted to snf facility to finish his course of Levaquin for pneumonia. - Time Spent with Patient Total time spent providing and/or coordinating discharge services: Less than 30 minutes - Discharge Medications Home Medications: Aspirin Enteric Coated [Aspirin EC] 81 mg PO DAILY 12/20/17 [History] Atenolol [Tenormin] 25 mg PO DAILY 12/20/17 [History] Linagliptin [Tradjenta] 5 mg PO DAILY 12/20/17 [History] Lisinopril [Zestril] 10 mg PO DAILY 12/20/17 [History] Metformin HCl [Glucophage] 1,000 mg PO BIDWM 12/20/17 [History] Pioglitazone HCl [Actos] 30 mg PO DAILY 12/20/17 [History] Pravastatin Sodium [Pravachol] 40 mg PO BID 12/20/17 [History] glipiZIDE [Glucotrol] 5 mg PO 0800 12/20/17 [History] hydroCHLOROthiazide [Hydrochlorothiazide] 25 mg PO DAILY 12/20/17 [History] Allergies/Adverse Reactions: 3 Allergy/AdvReac Type Severity Reaction Status Date / Time Penicillins Allergy Hives Verified 08/30/17 14:13 Date of admission: 12/21/17 02:45 Primary care physician: Prabhu Doan Consults: 12/21/17 09:46 Consult to Occupational Therapy [CONS] Routine Comment: Evaluate, develop and implement POC Reason for Consult: discharge planning Does patient have active BEDREST order?: No Is patient medically & hemodynamically stable?: Yes Consult to Physical Therapy [CONS] Routine Comment: Evaluate, develop and implement POC Reason for Consult: discharge plan Does patient have active BEDREST order?: No Is patient medically & hemodynamically stable?: Yes - Constitutional Vitals: Temp Pulse Resp BP Pulse Ox 97.9 F 84 16 114/70 93 12/24/17 14:16 12/24/17 14:16 12/24/17 14:16 12/24/17 14:16 12/24/17 14:16 General appearance: Present: cooperative, disheveled, A&O X 2, mild distress, pleasant, no acute distress - Respiratory Respiratory exam: Present: CTAB. Absent: accessory muscle use, rales, rhonchi, wheezes - Cardiovascular Cardiovascular exam: Present: RRR, +S1, +S2. Absent: diastolic murmur, gallop, rubs, systolic murmur - Patient Status Disposition: Transfer SNF Condition: Fair - Discharge Instructions Follow Up With: Prabhu Doan MD [Primary Care Provider] -
--- NOTE | 2017-12-24 17:31 | Physician Discharge Referral ---
ExtendedCare Referral Info Institutional Level of Care: Skilled - Diagnosis (1) Pneumonia Status: Acute (2) Sepsis Status: Resolved (3) Acute encephalopathy Status: Acute (4) Type 2 diabetes mellitus Status: Chronic - Transfer Medications Home Medications: Aspirin Enteric Coated [Aspirin EC] 81 mg PO DAILY 12/20/17 [History] Atenolol [Tenormin] 25 mg PO DAILY 12/20/17 [History] Linagliptin [Tradjenta] 5 mg PO DAILY 12/20/17 [History] Lisinopril [Zestril] 10 mg PO DAILY 12/20/17 [History] Metformin HCl [Glucophage] 1,000 mg PO BIDWM 12/20/17 [History] Pioglitazone HCl [Actos] 30 mg PO DAILY 12/20/17 [History] Pravastatin Sodium [Pravachol] 40 mg PO BID 12/20/17 [History] glipiZIDE [Glucotrol] 5 mg PO 0800 12/20/17 [History] hydroCHLOROthiazide [Hydrochlorothiazide] 25 mg PO DAILY 12/20/17 [History] Allergies/Adverse Reactions: 3 Allergy/AdvReac Type Severity Reaction Status Date / Time Penicillins Allergy Hives Verified 08/30/17 14:13 - Respiratory Orders Smoking Cessation: Smoking cessation has been advised. For more information, call the [place] Tobacco Quit Line at 2-562-LXCGNOW. CERTIFICATION: I certify that the transfer of the above named patient to an Extended Care Facility is necessary for the continuing treatment of the diagnosis listed. The above information is true and accurate reflection of patient's current condition. Confidential - Redisclosure prohibited without a patient's written consent.
[2017-12-25] MEDS: *HR* Heparin 5,000 UNIT/ML VIAL SQ SCH ×2 (05:23→18:21)
[2017-12-25] MEDS: Insulin LISPRO 300 UNITS/3 ML VIAL SQ SCH ×4 (08:15→21:12)
[2017-12-25] MEDS: Aspirin Enteric Coated 81 MG Tablet PO SCH (08:15)
--- NOTE | 2017-12-25 15:46 | Internal Med Progress Note ---
Date of Encounter: 12/25/17 Time of Encounter: 14:00 - Assessment and plan (1) Sepsis Current Visit: Yes Status: Resolved Assessment and plan: Resolved Due to Pneumonia Qualifiers: Sepsis type: sepsis due to unspecified organism Qualified Code(s): A41.9 - Sepsis, unspecified organism (2) Pneumonia Current Visit: Yes Status: Acute Assessment and plan: Chest x-ray showed developing perihilar infiltrate in right lung concerning for pneumonia Mostly bacterial Cont empirical abx Levaqui.. will switch to PO Patient still requiring supplemental oxygenation Continue current management Qualifiers: Pneumonia type: due to unspecified organism Laterality: right Lung location: unspecified part of lung Qualified Code(s): J18.9 - Pneumonia, unspecified organism (3) Acute respiratory failure with hypoxia Current Visit: Yes Status: Acute Assessment and plan: Due to pneumonia Improving (4) Acute encephalopathy Current Visit: Yes Status: Acute Assessment and plan: Resolved Mostly due to sepsis, Pneumonia he does have toxic encephalopathy cont close monitoring (5) Type 2 diabetes mellitus Current Visit: Yes Status: Chronic Assessment and plan: Continue holding oral home meds and coverage with sliding-scale insulin Qualifiers: Diabetes mellitus intermediate insulin use: without intermediate use Diabetes mellitus complication status: without complication Qualified Code(s): E11.9 - Type 2 diabetes mellitus without complications (6) Physical deconditioning Current Visit: Yes Status: Acute Assessment and plan: PT / OT eval done need placement for short term rehab SW working on it - Time Spent With Patient Total time spent is greater than 50% in coordination of care (as documented) at patient's floor/unit and/or counseling patient: - Subjective Interval history: 67-year-old male with past medical history significant for hypertension, hyperlipidemia and diabetes who presented to the ER on 12/21/17 due to fever and confusion. Pt was admitted here for pneumonia and sepsis. He was started on empirical abx IV levaquin. Pt is alert, awake and O x 3. Denied any new complaints. He feels better today - Constitutional Vitals: Temp Pulse Resp BP Pulse Ox 97.6 F 88 18 105/62 93 12/25/17 14:42 12/25/17 14:42 12/25/17 14:42 12/25/17 14:42 12/25/17 14:42 General appearance: Present: cooperative, A&O X 3, no acute distress, answers questions appropriately - Head Head exam: Present: atraumatic, normal inspection - Neck Neck exam general surgery: Present: supple - Respiratory Respiratory exam: Present: decreased breath sounds, wheezes (mild). Absent: rales, respiratory distress, rhonchi - Cardiovascular Cardiovascular exam: Present: RRR, +S1, +S2. Absent: tachycardia - GI/Abdominal GI/Abdominal exam: Present: normal bowel sounds, soft. Absent: rebound, rigid, tenderness - Extremities Exam Extremities exam: Absent: calf tenderness, pedal edema, tenderness - Back Exam Back exam: Absent: CVA tenderness (L), CVA tenderness (R) - Neurological Exam Neurological exam: Present: alert, oriented X3 - Psychiatric Psychiatric exam: Present: normal affect, normal mood - Skin Skin exam: Absent: rash Internal Medicine: Result - Labs CBC & Chem 7: 12/24/17 05:25 12/24/17 05:25 - ABG Interpretation ABG results: PT/INR, D-dimer PT 14.5 Seconds (9.4-12.1) H 12/23/17 13:08 Consult Discharge Plan - Plan Referrals: Prabhu Doan MD [Primary Care Provider] -
[2017-12-25] MEDS: levoFLOXacin 750 MG TABLET PO SCH (18:21)
[2017-12-26] MEDS: *HR* Heparin 5,000 UNIT/ML VIAL SQ SCH (05:35)
[2017-12-26] MEDS: Aspirin Enteric Coated 81 MG Tablet PO SCH (08:18)
[2017-12-26] MEDS: Insulin LISPRO 300 UNITS/3 ML VIAL SQ SCH ×2 (08:18→12:37)
--- NOTE | 2017-12-26 13:55 | Internal Med Progress Note ---
Date of Encounter: 12/26/17 Time of Encounter: 13:53 - Assessment and plan (1) Sepsis Current Visit: Yes Status: Resolved Assessment and plan: Resolved Due to Pneumonia Qualifiers: Sepsis type: sepsis due to unspecified organism Qualified Code(s): A41.9 - Sepsis, unspecified organism (2) Pneumonia Current Visit: Yes Status: Acute Assessment and plan: Chest x-ray showed developing perihilar infiltrate in right lung concerning for pneumonia Mostly bacterial Improving Switched to PO Levaquin.. will finish total 7 days course Patient still requiring supplemental oxygenation may need home O2 Qualifiers: Pneumonia type: due to unspecified organism Laterality: right Lung location: unspecified part of lung Qualified Code(s): J18.9 - Pneumonia, unspecified organism (3) Acute respiratory failure with hypoxia Current Visit: Yes Status: Acute Assessment and plan: Due to pneumonia Improving May need home O2 (4) Acute encephalopathy Current Visit: Yes Status: Acute Assessment and plan: Resolved Mostly due to sepsis, Pneumonia he does have toxic encephalopathy cont close monitoring (5) Type 2 diabetes mellitus Current Visit: Yes Status: Chronic Assessment and plan: Continue holding oral home meds and coverage with sliding-scale insulin Qualifiers: Diabetes mellitus jail insulin use: without jail use Diabetes mellitus complication status: without complication Qualified Code(s): E11.9 - Type 2 diabetes mellitus without complications (6) Physical deconditioning Current Visit: Yes Status: Acute Assessment and plan: PT / OT eval done need placement for short term rehab SW working on it Medically stable to d/c to ECF - Time Spent With Patient Total time spent is greater than 50% in coordination of care (as documented) at patient's floor/unit and/or counseling patient: - Subjective Interval history: 67-year-old male with past medical history significant for hypertension, hyperlipidemia and diabetes who presented to the ER on 12/21/17 due to fever and confusion. Pt was admitted here for pneumonia and sepsis. He was started on empirical abx IV levaquin. Pt is alert, awake and O x 3. Denied any new complaints. He feels better today. - Constitutional Vitals: Temp Pulse Resp BP Pulse Ox 97.6 F 85 18 112/67 93 12/26/17 11:12 12/26/17 11:12 12/26/17 11:12 12/26/17 11:12 12/26/17 11:12 General appearance: Present: cooperative, A&O X 3, no acute distress, answers questions appropriately - Head Head exam: Present: atraumatic, normal inspection - Neck Neck exam general surgery: Present: supple - Respiratory Respiratory exam: Present: decreased breath sounds. Absent: rales, respiratory distress, rhonchi, wheezes - Cardiovascular Cardiovascular exam: Present: RRR, +S1, +S2. Absent: tachycardia - GI/Abdominal GI/Abdominal exam: Present: normal bowel sounds, soft. Absent: rebound, rigid, tenderness - Extremities Exam Extremities exam: Absent: calf tenderness, pedal edema, tenderness - Back Exam Back exam: Absent: CVA tenderness (L), CVA tenderness (R) - Neurological Exam Neurological exam: Present: alert, oriented X3 - Psychiatric Psychiatric exam: Present: normal affect, normal mood Internal Medicine: Result - Labs CBC & Chem 7: 12/24/17 05:25 12/24/17 05:25 - ABG Interpretation ABG results: PT/INR, D-dimer PT 14.5 Seconds (9.4-12.1) H 12/23/17 13:08 Consult Discharge Plan - Plan Referrals: Prabhu Doan MD [Primary Care Provider] -
[2017-12-26 15:35] VITALS: BP 136/83
--- NOTE | 2017-12-26 16:15 | Discharge Summary ---
- NOTES TO OUTPATIENT PROVIDER Notes to Outpatient Provider: continue abx Levaquin one more day Date of Encounter: 12/26/17 Time of Encounter: 16:12 - Discharge Diagnosis (1) Sepsis Priority: Primary Status: Resolved Qualifiers: Sepsis type: sepsis due to unspecified organism Qualified Code(s): A41.9 - Sepsis, unspecified organism (2) Pneumonia Priority: Primary Status: Acute Qualifiers: Pneumonia type: due to unspecified organism Laterality: right Lung location: unspecified part of lung Qualified Code(s): J18.9 - Pneumonia, unspecified organism (3) Acute respiratory failure with hypoxia Priority: Primary Status: Acute (4) Acute encephalopathy Priority: Secondary Status: Acute (5) Type 2 diabetes mellitus Priority: Secondary Status: Chronic Qualifiers: Diabetes mellitus shelter insulin use: without shelter use Diabetes mellitus complication status: without complication Qualified Code(s): E11.9 - Type 2 diabetes mellitus without complications (6) Physical deconditioning Priority: Secondary Status: Acute Hospital course: Mr. Soto is a 67 year old male with past medical history significant for hypertension, hyperlipidemia and diabetes who presented to the ER on 12/21/17 due to fever and confusion. Pt was admitted here for pneumonia and sepsis. He was started on empirical abx IV levaquin. His symptoms started improving slowly. Pt was evaluated by PT / OT who recommend ECF placement for short term PT / OT. We waited till today for insurance approval. Pt can go to ECF today in stable condition. - Time Spent with Patient Total time spent providing and/or coordinating discharge services: - Discharge Medications Home Medications: Aspirin Enteric Coated [Aspirin EC] 81 mg PO DAILY 12/20/17 [History] Atenolol [Tenormin] 25 mg PO DAILY 12/20/17 [History] Linagliptin [Tradjenta] 5 mg PO DAILY 12/20/17 [History] Lisinopril [Zestril] 10 mg PO DAILY 12/20/17 [History] Metformin HCl [Glucophage] 1,000 mg PO BIDWM 12/20/17 [History] Pioglitazone HCl [Actos] 30 mg PO DAILY 12/20/17 [History] Pravastatin Sodium [Pravachol] 40 mg PO BID 12/20/17 [History] glipiZIDE [Glucotrol] 5 mg PO 0800 04/12/18 [History] hydroCHLOROthiazide [Hydrochlorothiazide] 25 mg PO DAILY 12/20/17 [History] Allergies/Adverse Reactions: 3 Allergy/AdvReac Type Severity Reaction Status Date / Time Penicillins Allergy Hives Verified 08/30/17 14:13 Date of admission: 12/21/17 02:45 Primary care physician: Prabhu Doan Consults: 12/21/17 09:46 Consult to Occupational Therapy [CONS] Routine Comment: Evaluate, develop and implement POC Reason for Consult: discharge planning Does patient have active BEDREST order?: No Is patient medically & hemodynamically stable?: Yes Consult to Physical Therapy [CONS] Routine Comment: Evaluate, develop and implement POC Reason for Consult: discharge plan Does patient have active BEDREST order?: No Is patient medically & hemodynamically stable?: Yes - Constitutional Vitals: Temp Pulse Resp BP Pulse Ox 98.7 F 86 13 136/83 93 12/26/17 14:55 12/26/17 14:55 12/26/17 14:55 12/26/17 14:55 12/26/17 14:55 General appearance: Present: cooperative, A&O X 3, no acute distress, answers questions appropriately - Head Head exam: Present: atraumatic, normal inspection - Neck Neck exam general surgery: Present: supple - Respiratory Respiratory exam: Present: decreased breath sounds. Absent: rales, respiratory distress, rhonchi, wheezes - Cardiovascular Cardiovascular exam: Present: RRR, +S1, +S2. Absent: tachycardia - Extremities Exam Extremities exam: Absent: calf tenderness, pedal edema, tenderness - Patient Status Disposition: Transfer SNF Condition: Fair - Discharge Instructions Follow Up With: Prabhu Doan MD [Primary Care Provider] -
--- NOTE | 2017-12-28 08:21 | Electrocardiograph Report ---
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
--- NOTE | 2017-12-28 08:32 | Electrocardiograph Report ---
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
== END 2017-12-26 16:48 | DRG 871 ==
LOC: EMEROO 19:16 → 2SOUTHHOLD 19:16 → SUATTDRO 12-21 02:45 → 3ANU 12-22 19:30
PROVIDERS: ADMIT Pediatrics; ATTEND Hospitalist